=== PATIENT | female | born 1980 | race Caucasian/White ===

== ENCOUNTER 2016-06-26 16:45 | Emergency (ER) | payer OTHER ==
[~2016-06-26] VITALS: Ht 157.5 cm; Wt 46.8 kg
[2016-06-26 17:08] VITALS: BP 134/92; PULSE 104; RESP 18; O2SAT 99
[2016-06-26] MEDS ORDERED: Ketorolac 15 mg/mL Inj IV ONE (17:20)
[2016-06-26 17:52] LABS: BASOPHILS % (AUTO) 0.3 % (0-3); EOSINOPHILS % (AUTO) 0.5 % (0-5); MONOCYTES % (AUTO) 8.7 % (4-12); Mean Corpuscular Hemoglobin 31.3 pg (27.0-35.0); Mean Corpuscular Volume 93.8 fL (81-100); NEUTROPHILS % (AUTO) 75.9 % (40-74); Platelet Count 160 bil/L (150-400)
[2016-06-26 18:05] LABS: APPEARANCE,URINE HAZY (CLEAR,HAZY); COLOR,URINE YELLOW (YELLOW)
[2016-06-26 18:06] LABS: OCCULT BLOOD,URINE TRACE (NEGATIVE); UROBILINOGEN,URINE NORMAL (NORMAL)
[2016-06-26] MEDS ORDERED: cefTRIAXone Inj 2,000 MG in Dextrose 5% Minibag Plus 50 ML IV ONE (19:05)
[2016-06-26] MEDS ORDERED: 0.9% Sodium Chloride 1,000 ML IV ONE (19:05)
[2016-06-26 20:07] VITALS: BP 122/80; PULSE 90; O2SAT 100
--- NOTE | 2016-06-26 21:11 | ED.REPORT ---
HPI-Abd Pain F Under 41 Date of Service Jun 26, 2016 ED Provider: Philip Smallwood MD Patient is a 35 year old female with a history of headaches and meth use who presents to the ED complaining of back pain onset three days ago. Associated symptoms include subjective fever, generalized body aches, nausea, headache, shortness of breath, and lightheadedness. She denies dysuria or vomiting. The patient has not taken any medication for the pain. The patient woke up due to a headache and it has gotten progressively worse today. She reports that she has not had a headache this bad before but normally has two headaches per week. Nursing Notes Stated Complaint: KIDNEY PAIN, HEADACHE Chief Complaint: General Complaint Nursing Notes Reviewed: Yes Allergies: Coded Allergies: tramadol (Verified Adverse Reaction, Unknown, "makes my head explode", ) General Time Seen by MD: 17:18 Chief Complaint Other (back pain) Hx Obtained From: Patient Arrived By: Walk-in Sudden in Onset?: Yes Symptom Duration: Since onset Location: : Back Associated with: Reports: Nausea, Shortness of breath Recent Healthcare: No recent doctor visit, No recent hospitalization Similar Sx Previous: No Past Medical History Past Medical History headaches Reports: Asthma Past Surgical History TAB x2 Social History used meth a couple of days ago Alcohol Use: "Social" Drug Use: Cocaine, Meth, Other (ectasy) Other Social History: Good social support, Local resident, Homeless Ambulatory Status Independent Review of Systems Constitutional: Reports: Fever (subjective) Respiratory: Reports: Shortness of breath, Denies: Non-productive cough GI: Reports: Nausea, Denies: Vomiting Female: Denies: Dysuria Musculoskeletal: Reports: Back pain, Myalgia Complete sys rev & neg: except as marked. Neurologic: Reports: Headache, Lightheaded Physical Exam Initial Vital Signs Vital Signs (First) Date Time Temp Pulse Resp B/P Pulse Ox O2 Delivery O2 Flow Rate FiO2 06/26/16 17:08 37.2 104 18 134/92 99 Nasal Cannula Initial VS: Reviewed General/Constitutional: Awake, Alert, No acute distress Respiratory / Chest: Atraumatic, Breath sounds NL, Breath sounds = bilat, No respiratory distress Cardiovascular: Heart rate NL, Regular rhythm, Heart sounds NL, No murmurs, No rubs Abdomen: Atraumatic, Soft, Non-tender, BS normoactive Back: Atraumatic, Full range of motion right CVA tenderness Head / Eyes: Atraumatic, Normocephalic, PERRL, EOMI Skin: Atraumatic, Color NL, No rash, Warm, Dry Neurologic: Oriented X3, Speech NL, No motor deficits, No sensory deficits Neck: Atraumatic, Supple, Full range of motion Psychiatric: Affect NL, Mood NL Interpretation & Diagnostics Lab Results Interpretation Result Diagram: 06/26/16 1725 06/26/16 1725 Test 06/26/16 17:25 06/26/16 17:44 White Blood Count 7.9th/mm3 (3.8-10.1) Red Blood Count 4.69mil/mm3 (3.90-5.20) Hemoglobin 14.7g/dL (12.0-15.6) Hematocrit 44.0% (35.0-46.0) Mean Corpuscular Volume 93.8fL (81-100) Mean Corpuscular Hemoglobin 31.3pg (27.0-35.0) Mean Corpuscular Hemoglobin Concent 33.4% (32.0-37.0) Red Cell Distribution Width 12.4% (12.3-15.4) Platelet Count 160bil/L (150-400) Neutrophils (%) (Auto) 75.9% (40-74) Lymphocytes (%) (Auto) 14.3% (14-46) Monocytes (%) (Auto) 8.7% (4-12) Eosinophils (%) (Auto) 0.5% (0-5) Basophils (%) (Auto) 0.3% (0-3) Sodium Level 134mEq/L (134-144) Potassium Level 3.9mEq/L (3.5-5.2) Chloride Level 95mEq/L (97-108) Carbon Dioxide Level 26mmol/L (18-29) Blood Urea Nitrogen 9mg/dL (6-20) Creatinine 0.68mg/dL (0.57-1.00) Estimat Glomerular Filtration Rate 142mL/min (>59) Glucose Level 92mg/dL (60-99) Calcium Level 9.3mg/dL (8.5-10.1) Total Bilirubin 0.8mg/dL (0.0-1.2) Aspartate Amino Transf (AST/SGOT) 18U/L (0-50) Alanine Aminotransferase (ALT/SGPT) 13U/L (0-32) Alkaline Phosphatase 105U/L (25-150) Total Protein 7.2g/dL (6.4-8.4) Albumin 4.4g/dL (3.4-5.0) Hold Silverio Top Tube Received (Received) Urine Color Yellow (YELLOW) Urine Appearance Hazy (CLEAR,HAZY) Urine pH 7.0 (5.0-8.0) Urine Specific [place] 1.020 (1.003-1.035) Urine Protein Tracemg/dL (NEG,TRACE) Urine Glucose (UA) Negativemg/dL (NEGATIVE) Urine Ketones Negativemg/dL (NEGATIVE) Urine Occult Blood Trace (NEGATIVE) Urine Nitrite Negative (NEGATIVE) Urine Bilirubin Negative (NEGATIVE) Urine Urobilinogen Normalmg/dL (NORMAL) Urine Leukocyte Esterase Trace (NEGATIVE) Urine RBC 0-2/hpf (0-2) Urine WBC >50/hpf (0-5) Urine Epithelial Cells Moderate/hpf (NONE-MOD) Urine Crystals None seen (NONE SEEN) Urine Bacteria Many/hpf (NONE-FEW) Urine Hyaline Casts None/lpf (NONE) Urine Granular Casts None seen (NONE SEEN) Urine Waxy Casts None seen (NONE SEEN) Urine Red Blood Cell Casts None seen (NONE SEEN) Urine White Blood Cell Casts None seen (NONE SEEN) Urine Mucus None seen (None Seen) Urine Trichomonas None seen (NONE SEEN) Urine Yeast None (NONE SEEN) Urinalysis Comment None Urine Culture Reflexed Indicated Re-Eval/Medical Decision Source of Hx: Old records Re-Evaluation/Progress : Time of Eval: 21:00 Re-Evaluation/Progress Note: Discussed results and plan for discharge. The patient understands and agrees to the plan for discharge. All questions were addressed. Counseled Regarding: Diagnosis, Lab results, Need for follow-up, When/why to return to ED Discharge & Departure Primary Impression: Acute pyelonephritis Disposition: Home Discharge Condition All VS Reviewed: Yes Condition: Stable Patient Instructions: Acute Pyelonephritis (ED) Additional Instructions: Emergency department evaluation today included review, examination and labs. We find a right-sided kidney infection. Antibiotics were started with intravenous antibiotics that will cover you for 24 hours. Take cephalexin 500 mg 3 times a day for 10 days as prescribed tomorrow. Ondansetron as needed for nausea and vomiting. Hydrocodone one to 2 every 4 hours as needed for pain. Call the residents [facility] for a follow-up appointment. Return to emergency department if getting worse including uncontrolled vomiting increasing pain, fevers or takes shaking chills. Return to emergency department if not better in 2 days. Referrals: [facility] Scribe Attestation Portions of this note were transcribed by Callie Vergara. I, Dr. Smallwood personally performed the history, physical exam and medical decision-making; I reviewed and confirmed the accuracy of the information in the transcribed note. Signed by: Ирина Rodriguez, 4. and 2119. copies to: [facility] Philip Smallwood MD Jun 26, 2016 21:11 Stella Vergara Jun 26, 2016 21:19
[2016-06-26] MEDS ORDERED: _HYDROcodone/APAP 5-325 mg Tablet PO PRN (21:15)
[2016-06-26] MEDS ORDERED: _Ondansetron ODT 4 mg Tablet PO PRN (21:15)
[2016-06-27] MEDS ORDERED: _Cephalexin 500 mg Capsule PO SCH (08:30)
== END 2016-06-26 21:46 | disposition home or self-care (01) ==
LOC: SED 16:45
DX: N10 Acute pyelonephritis (principal); B96.20 Unspecified Escherichia coli [E. coli] as the cause of diseases classified elsewhere; R50.9 Fever, unspecified; R11.0 Nausea; R51 Headache; R06.02 Shortness of breath; R42 Dizziness and giddiness; J45.909 Unspecified asthma, uncomplicated; Z59.0 Homelessness; Z88.5 Allergy status to narcotic agent
CPT/HCPCS: 36415; 80053; 81000; 81025; 85025; 87086; 87088; 87186; 96365; 96375; 99285; J0696; J1885; J7030